=== PATIENT | female | born 1955 | race Caucasian/White ===

== ENCOUNTER 2016-09-10 12:49 | Day surgery (SDC) | payer BC ==
[2016-09-10] VITALS (7 sets, daily range): BP systolic 103–121; BP diastolic 58–81; PULSE 67–91; TEMP 97.5–97.8
[~2016-09-10] VITALS: Ht 170.2 cm; Wt 78.9 kg
[~2016-09-10 12:49] MED LIST: LEVAQUIN 5500 MG/TA1 PO; OSCAL 500 TAB500 MG PO; PERCOCET 325 MG1 TA2 PO; TEGRETOL 1100 MG/TAB PO; VITAMIN D1000 IU PO
== END 2016-09-10 16:40 | disposition home or self-care (01) ==
LOC: SDCO 12:49
DX: K83.9 Disease of biliary tract, unspecified (principal); K31.9 Disease of stomach and duodenum, unspecified
CPT/HCPCS: J2250; J2405; J2704; J3010; J7030; Q9967